=== PATIENT | male | born 1990 | race Caucasian/White ===

== ENCOUNTER 2017-08-05 01:02 | Emergency (ER) | payer MEDICAID ==
[~2017-08-05] VITALS: Ht 172.7 cm; Wt 127.7 kg
[2017-08-05 01:09] VITALS: BP 129/78; Ht 172.7 cm; Wt 127.7 kg
== END 2017-08-05 01:45 | disposition home or self-care (01) ==
LOC: ED 01:02
DX: L03.011 Cellulitis of right finger (principal)
CPT/HCPCS: J0696

== ENCOUNTER 2017-09-29 23:23 | Emergency (ER) | payer MEDICAID ==
[~2017-09-29] VITALS: Ht 172.7 cm; Wt 131.1 kg
[2017-09-30 00:14] VITALS: Ht 172.7 cm; Wt 131.1 kg
[2017-09-30 01:38] VITALS: BP 125/72
== END 2017-09-30 01:38 | disposition home or self-care (01) ==
LOC: ED 23:23
DX: S91.114A Laceration without foreign body of right lesser toe(s) without damage to nail, initial encounter (principal); W26.8XXA Contact with other sharp object(s), not elsewhere classified, initial encounter; Y93.89 Activity, other specified; Y92.89 Other specified places as the place of occurrence of the external cause; Y99.8 Other external cause status

== ENCOUNTER 2018-02-27 09:14 | Emergency (ER) | payer MEDICAID ==
[~2018-02-27] VITALS: Ht 172.7 cm; Wt 122.9 kg
[2018-02-27 09:22] VITALS: BP 135/78; Ht 172.7 cm; Wt 122.9 kg
[2018-02-27 09:49] LABS: BASOPHIL % 0.4 % (0-2); PLATELET COUNT 344 x10^3mcL (130-400)
[2018-02-27 09:54] LABS: UA SPECIFIC GRAVITY 1.015 (1.005-1.035); microscopic required? YES; urine erythrocyte NEGATIVE (NEGATIVE)
[2018-02-27 09:54] LABS: RED CELL DISTRIBUTION WIDTH 14.8 % (11.5-14.5)
[2018-02-27 09:59] LABS: CALCIUM 9.3 mg/dL (8.5-10.1); CHLORIDE SERUM 104 mmol/L (98-107); CREATININE SERUM 0.9 mg/dL (0.7-1.3); GFR1 > 60 mL/min; GLUCOSE SERUM 103 mg/dL (74-106); POTASSIUM SERUM 4.1 mmol/L (3.5-5.1); SODIUM SERUM 141 mmol/L (136-145)
[2018-02-27 10:03] LABS: ALBUMIN 4.2 g/dL (3.4-5.0); ALKALINE PHOSPHATASE 70 U/L (46-116); ALT/SGPT 41 U/L (16-63); AMYLASE 49 U/L (25-115); AST/SGOT 18 U/L (15-37); BILIRUBIN TOTAL 0.5 mg/dL (0.20-1.00); LIPASE 108 IU/L (73-393)
[2018-02-27 10:12] LABS: TOTAL PROTEIN, SERUM 8.9 g/dL (6.4-8.2)
== END 2018-02-27 11:20 | disposition home or self-care (01) ==
LOC: ED 09:14
DX: K29.70 Gastritis, unspecified, without bleeding (principal); K59.00 Constipation, unspecified
CPT/HCPCS: 36415

== ENCOUNTER 2018-06-19 17:48 | Emergency (ER) | payer MEDICAID ==
[~2018-06-19] VITALS: Ht 172.7 cm; Wt 118.4 kg
[2018-06-19 18:04] VITALS: BP 129/82; Ht 172.7 cm; Wt 118.4 kg
== END 2018-06-19 21:23 | disposition home or self-care (01) ==
LOC: ED 17:48
DX: F41.9 Anxiety disorder, unspecified (principal); F19.939 Other psychoactive substance use, unspecified with withdrawal, unspecified